=== PATIENT | female | born 1965 | race Caucasian/White ===

== ENCOUNTER → 2017-05-04 | Outpatient (CLI) | payer BC ==
[2017-05-06 11:05] LABS: HPV Genotype 16 Not Detected (NOTDET); HPV Genotype 18 Not Detected (NOTDET); HPV High Risk Other Not Detected (NOTDET)
== END | disposition home or self-care (01) ==
LOC: LAB 11:34
PROVIDERS: Nurse Practitioner Obstetrics & Gynecology
DX: Z01.419 Encounter for gynecological examination (general) (routine) without abnormal findings (principal)
CPT/HCPCS: 87624; G0123

== ENCOUNTER → 2019-11-22 | Outpatient (CLI) | payer BC ==
[2019-11-26 17:11] LABS: CHLAMYDIA BY NAA Negative (Negative); GONOCOCCUS BY NAA Negative (Negative); HPV 16 Negative (Negative); HPV 18 Negative (Negative); HPV OTHER HR TYPES Negative (Negative); TRICH VAG BY NAA Positive (Negative)
== END | disposition home or self-care (01) ==
LOC: LAB 17:12 → LAB SHORT 17:12
PROVIDERS: Advanced Practice Midwife
DX: Z01.419 Encounter for gynecological examination (general) (routine) without abnormal findings (principal); Z11.3 Encounter for screening for infections with a predominantly sexual mode of transmission; N76.0 Acute vaginitis
CPT/HCPCS: 87070; 87205; 87491; 87591; 87624; 87661; G0123

== ENCOUNTER → 2019-12-19 | Outpatient (CLI) | payer BC ==
[2019-12-20 10:27] LABS: Candida species (DNA Probe) Negative (NEGATIVE); G. vaginalis (DNA Probe) Negative (NEGATIVE); T. vaginalis (DNA Probe) Negative (NEGATIVE)
== END | disposition home or self-care (01) ==
LOC: LAB 10:08 → LAB SHORT 10:08
PROVIDERS: Advanced Practice Midwife
DX: N76.0 Acute vaginitis (principal)
CPT/HCPCS: 87480; 87510; 87660

== ENCOUNTER → 2020-01-10 | Outpatient (CLI) | payer BC ==
[~2020-01-10] MED LIST: ALBU90OI INH; EPIPEN0.3 MG/0.1; HYDCHL25 PO; Prilosec Otc20 MG PO; Prinivil10 MG PO; TOPI100 PO
== END | disposition home or self-care (01) ==
LOC: LAB SHORT 07:54 → PLD 07:54
DX: D25.9 Leiomyoma of uterus, unspecified (principal)
CPT/HCPCS: 88305

== ENCOUNTER 2020-02-01 06:00 | Day surgery (SDC) | payer BC ==
[~2020-02-01] VITALS: Ht 162.6 cm; Wt 114.3 kg
[~2020-02-01 06:00] MED LIST changes: -Prinivil10 MG PO
--- NOTE | 2020-02-01 06:35 | NUR ---
Ambulatory in Day Surgery History, Chart, Medications and Allergies reviewed before start of procedure.Lungs clear T/O to Auscultation. Patient confirms NPO status and agrees with scheduled surgery.
[2020-02-01] MEDS ORDERED: Prinivil10 MG PO (06:38)
--- NOTE | 2020-02-01 07:33 | NUR ---
UP TO BATHROOM.
--- NOTE | 2020-02-01 11:58 | NUR ---
PT DOING WELL, TOLERATING CRACKERS AND SIPS OF WATER. PT REPORTS PAIN 4/10 AFTER TAKING 1 PERCOCET. VITALS WNL. INCISION CLEAN, DRY, AND INTACT.
== END 2020-02-01 13:35 | disposition home or self-care (01) ==
LOC: ORD 06:00 → ORSCMMR 06:00 → ORD 07:30 → BC 11:00 → SURS 12:46 → BC 13:05 → ORSCMMR 13:35 → ORD 13:35 → BC 13:35
PROVIDERS: Obstetrics & Gynecology
PROC: 0UT94ZZ Resection of Uterus, Percutaneous Endoscopic Approach (ICD-10-PCS; principal; 2020-02-01 07:30)
PROC: 8E0Y4CZ Robotic Assisted Procedure of Lower Extremity, Percutaneous Endoscopic Approach (ICD-10-PCS; principal; 2020-02-01 07:30)
PROC: 0UT74ZZ Resection of Bilateral Fallopian Tubes, Percutaneous Endoscopic Approach (ICD-10-PCS; principal; 2020-02-01 07:30)
DX: N92.0 Excessive and frequent menstruation with regular cycle (principal); D25.9 Leiomyoma of uterus, unspecified; N70.11 Chronic salpingitis; I10 Essential (primary) hypertension; E66.01 Morbid (severe) obesity due to excess calories; Z68.41 Body mass index [BMI] 40.0-44.9, adult; Z79.899 Other long term (current) drug therapy; Z87.891 Personal history of nicotine dependence
CPT/HCPCS: 58571; S2900; 36415; 86850; 86900; 86901; 88307; A9270-GY; J0330; J1580; J2250; J2405; J2710; J3010; J7120

== ENCOUNTER → 2020-03-14 | Outpatient (CLI) | payer BC ==
[~2020-03-14] MED LIST changes: +Prinivil10 MG PO
[2020-03-14 15:19] LABS: Alanine Aminotransfer (ALT/SGP 39 U/L (12-78); Albumin, Blood 3.6 g/dL (3.4-5.0); Alk Phos 96 U/L (50-136); Anion Gap 4 mmol/L (6-16); Aspartate Aminotrans (AST/SGOT 21 U/L (12-37); Bilirubin, Total 0.4 mg/dL (0.1-1.0); Blood Urea Nitrogen 15 mg/dL (8-24); Bun/Creatinine Ratio 17.4 (12.0-20.0); CO2, Blood 28 mmol/L (21-32); Calcium, Blood 8.4 mg/dL (8.5-10.1); Chloride, Blood 109 mmol/L (98-108); Creatinine, Blood 0.86 mg/dL (0.40-1.00); Globulin, Blood 3.7 g/dL (2.2-4.0); Glomerular Filtration Rate >60 (60-); Glucose, Blood 102 mg/dL (70-99); Potassium, Blood 3.9 mmol/L (3.5-5.5); Sodium, Blood 141 mmol/L (136-145); Total Protein, Blood 7.3 g/dL (6.4-8.2)
== END | disposition home or self-care (01) ==
LOC: LAB SHORT 14:17
PROVIDERS: Obstetrics & Gynecology
DX: Z13.9 Encounter for screening, unspecified (principal)
CPT/HCPCS: 80053

== ENCOUNTER → 2022-10-13 | Outpatient (CLI) | payer BC | END | disposition home or self-care (01) | LOC: LAB SHORT 09:27 → LAB 09:27 | DX: Z13.1 Encounter for screening for diabetes mellitus (principal); Z13.220 Encounter for screening for lipoid disorders; Z13.21 Encounter for screening for nutritional disorder; Z13.228 Encounter for screening for other metabolic disorders; N95.1 Menopausal and female climacteric states; I10 Essential (primary) hypertension; R63.5 Abnormal weight gain; R53.83 Other fatigue; R45.4 Irritability and anger; R37 Sexual dysfunction, unspecified | CPT/HCPCS: 85651 ==

== ENCOUNTER 2023-10-31 10:44 | Emergency (ER) | payer BC ==
[~2023-10-31] VITALS: Ht 162.6 cm; Wt 120.2 kg
[2023-10-31 10:58] VITALS: BP 137/93
== END 2023-10-31 12:55 | disposition home or self-care (01) ==
LOC: ER 10:44
DX: I82.812 Embolism and thrombosis of superficial veins of left lower extremity (principal); I10 Essential (primary) hypertension; Z87.891 Personal history of nicotine dependence; Z79.899 Other long term (current) drug therapy; Z88.0 Allergy status to penicillin; Z88.5 Allergy status to narcotic agent; Z91.030 Bee allergy status
CPT/HCPCS: 93971; 99283-25